=== PATIENT | female | born 1990 | race African-American/Black ===

== ENCOUNTER 2018-12-17 03:57 | Emergency (ER) | payer SELFPAY | END 2018-12-17 05:07 | disposition home or self-care (01) | LOC: EDBD 03:57 → ERS 03:57 | DX: L25.9 Unspecified contact dermatitis, unspecified cause (principal); R73.03 Prediabetes; F17.210 Nicotine dependence, cigarettes, uncomplicated | CPT/HCPCS: 99283 ==